=== PATIENT | male | born 1995 | race Caucasian/White ===

== ENCOUNTER 2017-05-01 21:07 | Emergency (ER) | payer SELFPAY ==
[~2017-05-01] VITALS: Ht 195.6 cm; Wt 77.1 kg
[2017-05-01 21:20] VITALS: BP 137/81
[2017-05-01 21:32] LABS: BILIRUBIN,URINE SMALL (NEG); GLUCOSE,URINE NEGATIVE (NEG); NITRITE,URINE NEGATIVE (NEG); PROTEIN,URINE NEGATIVE (NEG-TRACE)
[2017-05-01 21:39] LABS: BACTERIA,URINE 0 /HPF (0-FEW); RBC,URINE 20-40 /HPF (0-2); SQUAMOUS EPITHELIAL CELL,UR FEW /LPF
[2017-05-01] MEDS ORDERED: metroNIDAZOLE 500 MG TABLET PO ONE (22:15)
[2017-05-01] MEDS ORDERED: cefTRIAXone IM 250 MG VIAL IM ONE (22:15)
[2017-05-01] MEDS ORDERED: AZITHROMYCIN 250 MG TABLET. PO ONE (22:15)
--- NOTE | 2017-05-01 22:22 | PHYS DOC ---
Past Medical History Past Medical History: No Pertinent History Past Surgical History: No Surgical History Alcohol Use: None Drug Use: None Adult General Chief Complaint Chief Complaint: PAIN ON URINATION [facility] HPI Patient is a 21 year old male presents to the emergency department stating for the last month he's been having painful urination. He states today he started having straight blood noted when he urinated. Patient states he is also been having difficulty with urination. Patient states that he has some left flank pain and discomfort. Patient also states that his girlfriend tested positive for chlamydia however he did not get treated. Patient states that he is having lower abdominal pain and discomfort. Denies any nausea vomiting fever or chills. Patient also states that he is on probation and needs to get a urine test and has difficulty with urination. Review of Systems Review of Systems Constitutional: Denies fever or chills [] Eyes: Denies change in visual acuity, redness, or eye pain [] HENT: Denies nasal congestion or sore throat [] Respiratory: Denies cough or shortness of breath [] Cardiovascular: No additional information not addressed in HPI [] GI: Denies abdominal pain, nausea, vomiting, bloody stools or diarrhea [] : Dysuria with hematuria Musculoskeletal: Denies back pain or joint pain [] Integument: Denies rash or skin lesions [] Neurologic: Denies headache, focal weakness or sensory changes [] Endocrine: Denies polyuria or polydipsia [] Current Medications Current Medications Current Medications Medications (Trade) Dose Ordered Sig/Steffanie Start Time Stop Time Status Last Admin Dose Admin Azithromycin (Zithromax) 1,000 mg 1X ONCE 05/01/17 22:15 05/01/17 22:16 DC Ceftriaxone Sodium (Rocephin Im) 250 mg 1X ONCE 05/01/17 22:15 05/01/17 22:16 DC Metronidazole (Flagyl) 2,000 mg 1X ONCE 05/01/17 22:15 05/01/17 22:16 DC Allergies Allergies Allergies Coded Allergies Type Severity Reaction Last Updated Verified No Known Drug Allergies 05/01/17 No Physical Exam Physical Exam Constitutional: Well developed, well nourished, no acute distress, non-toxic appearance. [] HENT: Normocephalic, atraumatic, bilateral external ears normal, oropharynx moist, no oral exudates, nose normal. Patient with throat that appears to be erythematous with postnasal drip noted. Eyes: PERRLA, EOMI, conjunctiva normal, no discharge. [] Neck: Normal range of motion, no tenderness, supple, no stridor. [] Cardiovascular:Heart rate regular rhythm, no murmur [] Lungs & Thorax: Bilateral breath sounds clear to auscultation [] Skin: Warm, dry, no erythema, no rash. [] Back: No tenderness, left CVA tenderness. [] Extremities: No tenderness, no cyanosis, no clubbing, ROM intact, no edema. [] Neurologic: Alert and oriented X 3, normal motor function, normal sensory function, no focal deficits noted. [] Psychologic: Affect normal, judgement normal, mood normal. [] Current Patient Data Vital Signs Vital Signs Date Time Temp Pulse Resp B/P (MAP) Pulse Ox O2 Delivery O2 Flow Rate FiO2 05/01/17 21:20 97.8 81 18 100 Room Air 97.8 Lab Values Laboratory Tests Test 05/01/17 21:12 Urine Collection Type Unknown Urine Color Velma Urine Clarity Clear Urine pH 6.0 Urine Specific [place] >=1.030 Urine Protein Negative mg/dL (NEG-TRACE) Urine Glucose (UA) Negative mg/dL (NEG) Urine Ketones (Stick) Negative mg/dL (NEG) Urine Blood Large (NEG) Urine Nitrite Negative (NEG) Urine Bilirubin Small (NEG) Urine Urobilinogen Dipstick 1.0 mg/dL (0.2 mg/dL) Urine Leukocyte Esterase Small (NEG) Urine RBC 20-40 /HPF (0-2) Urine WBC 11-20 /HPF (0-4) Urine Squamous Epithelial Cells Few /LPF Urine Bacteria 0 /HPF (0-FEW) Urine Mucus Marked /LPF EKG EKG [] Radiology/Procedures Radiology/Procedures [][facility] [address] [place] [address] IMAGING REPORT Signed PATIENT: CAMI GALLARDO ACCOUNT: [id number] : 1995 LOCATION: ER AGE: 21 SEX: M EXAM STATUS: REG ER ORD. PHYSICIAN: SALINA ALLRED APRN REASON: left flank pain, hematuria PROCEDURE: CT ABDOMEN PELVIS WO CONTRAST History: Left flank pain, hematuria. Comparison: None. Technique: CT of the abdomen and pelvis was performed without intravenous or oral contrast. Exposure: One or more of the following individualized dose reduction techniques were utilized for this examination: 1. Automated exposure control 2. Adjustment of the mA and/or kV according to patient size 3. Use of iterative reconstruction technique Findings: Evaluation of solid organs is limited by lack of intravenous contrast. Evaluation of enteric structures may be limited by lack of oral contrast. Liver, spleen, pancreas, gallbladder, and bilateral adrenal glands unremarkable. Bilateral kidneys and ureters are free stone or obstruction. No bowel obstruction or inflammation is identified. Appendix is without evidence of inflammation. No free air or free fluid is seen in the abdomen or pelvis. Urinary bladder is unremarkable. Impression: No acute abnormality identified in the abdomen or pelvis. No evidence of urinary stone. Electronically signed by: Nehemiah Rios MD (05/01/2017 10:30 PM) [facility] DICTATED and SIGNED BY: NEHEMIAH RIOS MD DATE: 05/01/172219 CC: SALINA ALLRED APRN; NO PCP ~ Course & Med Decision Making Course & Med Decision Making Pertinent Labs and Imaging studies reviewed. (See chart for details) Patient's urine was positive for small amount leukocyte Estrace with a large amount of blood. Patient will be treated for sexual transmitted infections with Rocephin, Flagyl and Zithromax. CT scan was negative for any kidney stones. Patient will be discharged home with Cipro. He was treated for sexually transmitted infections. He was also instructed that he will be notified in the next 2-3 days if the results are positive. His also instructed to avoid sexual intercourse for the next 2 weeks. Signs and symptoms to return back to emergency department as been provided. All questions and concerns been answered at the patient's bedside. Patient agrees with discharge instructions treatment regimens and follow-up recommendations. Recommended following up in the next 7-10 days. Also recommended plenty of fluids such as water and cranberry juice. Recommended avoiding cranberry juice cocktail carbonate beverages, caffeine, alcohol and citrus fruits disease are considered irritants to the bladder. [] Dragon Disclaimer Dragon Disclaimer This electronic medical record was generated, in whole or in part, using a voice recognition dictation system. Departure Departure Impression: Primary Impression: Urinary tract infection Additional Impression: Concern about sexually transmitted disease in male without diagnosis Disposition: 01 HOME, SELF-CARE Condition: STABLE Referrals: NO PCP (PCP) Patient Instructions: Sexually Transmitted Disease, [id number], Urinary Tract Infection, [id number] Additional Instructions: Your CT scan was negative for any kidney stones. Your urine was positive for urinary tract infection. You were treated for sexual transmitted infections here in the emergency department. Your culture results will be back in approximately 2-3 days. Anabiotic's as prescribed. Drink plenty of fluids such as water and cranberry juice. Avoid cranberry juice cocktail, carbonate beverages, citrus fruits, alcohol and caffeine as these are considered irritants to the bladder. Follow-up the primary care physician in the next 7-10 days. Return back to emergency prior signs symptoms of become worse. Scripts Ciprofloxacin Hcl (CIPRO) 500 Mg Tablet 1 TAB PO BID, #14 TAB Prov: SALINA ALLRED APRN 05/01/17 Problem Qualifiers Primary Impression: Urinary tract infection Urinary tract infection type: site unspecified Hematuria presence: with hematuria Qualified Codes: N39.0 - Urinary tract infection, site not specified ; R31.9 - Hematuria, unspecified SALINA ALLRED APRN May 01, 2017 22:22
--- NOTE | 2017-05-01 22:33 | RAD ---
History: Left flank pain, hematuria. Comparison: None. Technique: CT of the abdomen and pelvis was performed without intravenous or oral contrast. Exposure: One or more of the following individualized dose reduction techniques were utilized for this examination: 1. Automated exposure control 2. Adjustment of the mA and/or kV according to patient size 3. Use of iterative reconstruction technique Findings: Evaluation of solid organs is limited by lack of intravenous contrast. Evaluation of enteric structures may be limited by lack of oral contrast. Liver, spleen, pancreas, gallbladder, and bilateral adrenal glands unremarkable. Bilateral kidneys and ureters are free stone or obstruction. No bowel obstruction or inflammation is identified. Appendix is without evidence of inflammation. No free air or free fluid is seen in the abdomen or pelvis. Urinary bladder is unremarkable. Impression: No acute abnormality identified in the abdomen or pelvis. No evidence of urinary stone. Electronically signed by: Nehemiah Rios MD (05/01/2017 10:30 PM) [facility]
[2017-05-01] MEDS ORDERED: CIPR500T94 PO (22:40)
== END 2017-05-01 22:56 | disposition home or self-care (01) ==
LOC: ER 21:07
DX: Z11.3 Encounter for screening for infections with a predominantly sexual mode of transmission (principal); N39.0 Urinary tract infection, site not specified
CPT/HCPCS: 74176; 81001; 87086; 87491; 87591; 96372; 99285; J0696; Q0144